=== PATIENT | female | born 1980 | race Caucasian/White ===

== ENCOUNTER 2020-07-17 15:30 | Inpatient (IN) | payer OTHER ==
[~2020-07-17] VITALS: Ht 154.9 cm; Wt 3.2 kg
[~2020-07-17 15:30] MED LIST: BENADRYL50 MG PO; MEDROL4 MG PO; PREVACID30 MG
[2020-08-01] MEDS ORDERED: PRENATAL TABLE1 EAC1 PO (08:55)
[2020-08-01] MEDS ORDERED: INTEGRA CAPSUL1 EACH PO (08:56)
== END 2020-08-04 12:42 | disposition home or self-care (01) | DRG 788 ==
LOC: LDR 08-01 08:13 → OB/GYN 08-01 08:13
PROVIDERS: ADMIT Obstetrics & Gynecology; ATTEND Obstetrics & Gynecology
PROC: 4A1HXFZ Monitoring of Products of Conception, Cardiac Rhythm, External Approach (ICD-10-PCS; 2020-08-01)
PROC: 10D00Z1 Extraction of Products of Conception, Low, Open Approach (ICD-10-PCS; principal; 2020-08-01 11:15)
DX: O62.1 Secondary uterine inertia (principal); O64.8XX0 Obstructed labor due to other malposition and malpresentation, not applicable or unspecified; O77.0 Labor and delivery complicated by meconium in amniotic fluid; O48.0 Post-term pregnancy; Z3A.40 40 weeks gestation of pregnancy; Z37.0 Single live birth; Z20.822 Contact with and (suspected) exposure to COVID-19

== ENCOUNTER 2023-10-04 13:56 | Emergency (ER) | payer OTHER ==
[~2023-10-04] VITALS: Ht 154.9 cm; Wt 56.2 kg
[~2023-10-04 13:56] MED LIST changes: +INTEGRA CAPSUL1 EACH PO; +PRENATAL TABLE1 EAC1 PO
[2023-10-04] MEDS ORDERED: BENZONATATE 100 MG CAPSULE PO ONE (15:00)
[2023-10-04] MEDS ORDERED: CEFTRIAXONE SODIUM 1,000 MG VIAL IM ONE (15:00)
[2023-10-04] MEDS ORDERED: METHYLPREDNISOLONE SOD SUCC 125 MG VIAL IM ONE (15:00)
[2023-10-04 16:19] LABS: HEMATOCRIT 34.7 % (36.0-45.00); HEMOGLOBIN 11.8 g/dL (12.0-15.00); MEAN CELL VOLUME 86.6 fL (80.00-100.00); MEAN CORPUSCULAR HEMOGLOBIN 29.4 pg (27.00-32.0); MEAN CORPUSCULAR HGB CONC 33.9 g/dl (32.0-36.0); PLATELET COUNT 240 K/uL (150-450); RED CELL DISTRIBUTION WIDTH 13.1 % (11.5-14.5)
[2023-10-04] MEDS ORDERED: QC TUSSIN DM L118 ML PO (17:07)
== END 2023-10-04 17:17 | disposition home or self-care (01) ==
LOC: ER 13:57
PROVIDERS: Nurse Practitioner Family
DX: U07.1 COVID-19 (principal); J00 Acute nasopharyngitis [common cold]; R53.81 Other malaise; Z88.8 Allergy status to other drugs, medicaments and biological substances